=== PATIENT | female | born 1970 | race Caucasian/White ===

== ENCOUNTER 2020-12-26 18:28 | Emergency (ER) | payer OTHER ==
[~2020-12-26] VITALS: Ht 147.3 cm; Wt 55.8 kg
[2020-12-26] MEDS ORDERED: BENADRYL25 MG PO (18:40)
[2020-12-26] MEDS ORDERED: VALACYCLOVIR1000 MG PO (18:41)
[2020-12-26 19:07] LABS: BASOPHILS 1.1 % (0.0-2.0); EOSINOPHILS 1.6 % (0.0-3.0); HEMATOCRIT 36.4 % (37.0-47.0); HEMOGLOBIN 11.6 gm/dL (12.0-15.0); LYMPHOCYTES 35.9 % (24.0-44.0); MCH 23.6 pg (26.0-34.0); MCHC 31.9 g/dL (28.0-37.0); MCV 74.1 fL (80.0-100.0); MONOCYTES 13.5 % (1.0-8.0); PLATELET COUNT 177 thou/uL (150-400); POLYS 47.9 % (36.0-66.0); RBC 4.91 mil/uL (4.20-5.00); RDW 17.5 % (10.5-14.5); WBC 4.1 thou/uL (4.0-11.0)
[2020-12-26 19:15] LABS: CALCIUM 8.3 mg/dL (8.5-10.1); CREATININE 0.8 mg/dL (0.6-1.0); POTASSIUM 4.4 mmol/L (3.5-5.1)
[2020-12-26 19:21] LABS: ALBUMIN 3.1 g/dL (3.4-5.0); TOTAL BILIRUBIN 0.3 mg/dL (0.2-1.0); TOTAL PROTEIN 7.4 g/dL (6.4-8.2)
[2020-12-26 19:26] LABS: URINE BILIRUBIN NEGATIVE (Negative); URINE BLOOD TRACE (Negative); URINE CLARITY CLEAR; URINE COLOR YELLOW; URINE GLUCOSE-RANDOM* NEGATIVE (Negative); URINE KETONES NEGATIVE (Negative); URINE NITRITE-REFLEX NEGATIVE (Negative); URINE PROTEIN (DIPSTICK) NEGATIVE (Negative); URINE SPECIFIC GRAVITY <= 1.005 (1.005-1.035); URINE UROBILINOGEN 0.2 E.U./dl (0.2-1.0)
[2020-12-26 19:31] LABS: URINE LEUKOCYTES-REFLEX 1+ (Negative)
[2020-12-26 19:34] LABS: BACTERIA-REFLEX 1-9 Few /HPF (None Seen); CASTS None Seen /LPF (None Seen); CRYSTALS None Seen /LPF (None Seen); SQUAMOUS 0-3 Few /LPF (0-3); URINE RBC None Seen /HPF (NONE SEEN); URINE WBC-REFLEX 0-5 Rare /HPF (0-5)
[2020-12-26 21:09] VITALS: BP 126/77
[2020-12-26 22:15] LABS: ANISOCYTOSIS 1+; HYPOCHROMASIA 1+; MICROCYTES 1+
== END 2020-12-26 21:09 | disposition home or self-care (01) ==
LOC: ER 18:28
PROVIDERS: Nurse Practitioner
DX: B01.9 Varicella without complication (principal); R30.0 Dysuria; Z79.899 Other long term (current) drug therapy

== ENCOUNTER 2021-07-23 18:50 | Emergency (ER) | payer OTHER ==
[~2021-07-23] VITALS: Ht 152.4 cm; Wt 57.6 kg
[~2021-07-23 18:50] MED LIST: BENADRYL25 MG PO; VALACYCLOVIR1000 MG PO
[2021-07-23 21:12] LABS: ABSOLUTE NEUTROPHILS 3.4 thou/uL (1.4-8.2); BASOPHILS 1.1 % (0.0-2.0); EOSINOPHILS 2.5 % (0.0-3.0); HEMATOCRIT 37.2 % (37.0-47.0); HEMOGLOBIN 11.8 gm/dL (12.0-15.0); LYMPHOCYTES 33.4 % (24.0-44.0); MCH 24.3 pg (26.0-34.0); MCHC 31.6 g/dL (28.0-37.0); MONOCYTES 7.7 % (1.0-8.0); PLATELET COUNT 248 thou/uL (150-400); POLYS 55.3 % (36.0-66.0); RBC 4.83 mil/uL (4.20-5.00); RDW 17.1 % (10.5-14.5); WBC 6.2 thou/uL (4.0-11.0)
[2021-07-23 21:19] LABS: CALCIUM 8.5 mg/dL (8.5-10.1); CREATININE 0.6 mg/dL (0.6-1.0); POTASSIUM 3.6 mmol/L (3.5-5.1)
[2021-07-23 21:37] LABS: ALBUMIN 3.4 g/dL (3.4-5.0); TOTAL BILIRUBIN 0.5 mg/dL (0.2-1.0); TOTAL PROTEIN 7.4 g/dL (6.4-8.2)
[2021-07-23] MEDS ORDERED: NAPROSYN500 MG PO (23:31)
[2021-07-23 23:36] VITALS: BP 115/52
--- NOTE | 2021-07-24 12:46 | EKG ---
[place] [address] [facility] [place] [address] ELECTROCARDIOGRAM REPORT Name: GUME GUNDERSON Room #: [facility] Alex#: [id number] Admission: 07/23/21 Attend Phys: Discharge: 07/24/21 Date of : 74 Report #: [id number] 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
== END 2021-07-24 00:06 | disposition home or self-care (01) ==
LOC: ER 18:50
PROVIDERS: Emergency Medicine
DX: R07.89 Other chest pain (principal); M79.602 Pain in left arm